=== PATIENT | male | born 1945 | race Two or more races ===

== ENCOUNTER 2018-06-29 21:28 | Inpatient (IN) | payer MEDICARE ==
[2018-06-29] MEDS ORDERED: SODIUM CHLORIDE 0.9% 1,000 ML IV STA (21:35)
[2018-06-29] MEDS ORDERED: DEXAMETHASONE SOD PHOSPHATE 10 MG/ML 1 ML VIAL IV STA (21:35)
[2018-06-29 21:53] LABS: Glucose,Whole Blood 125 mg/dL (75-99)
--- NOTE | 2018-06-29 22:32 | XR ---
EXAMINATION TYPE: XR chest 2V DATE OF EXAM: 06/29/2018 COMPARISON: NONE HISTORY: Weakness TECHNIQUE: Frontal and lateral views of the chest are obtained. FINDINGS: There is no heart failure nor confluent pneumonic infiltrate. Costophrenic angles are jarvis r. Heart size is normal. There is right shoulder prosthesis. There are chest leads. There is no sign of pleural effusion. IMPRESSION: No active cardiopulmonary disease. Normal heart.
--- NOTE | 2018-06-29 22:33 | ED ---
Altered Mental Status HPI - General Chief Complaint: Neuro Symptoms/Deficit Stated Complaint: Poss Stroke Time Seen by Provider: 06/29/18 21:35 Source: patient, EMS, RN notes reviewed, old records reviewed Mode of arrival: EMS Limitations: no limitations - History of Present Illness Initial Comments: This is a 72-year-old male the ER for evaluation of significant altered mental status. Unresponsiveness. EMS called the patient's office patient was last seen normal around 4 PM this afternoon. Patient unable to currently answer questions MD Complaint: altered mental status -: hour(s) (5) Severity: severe Consistency of Symptoms: constant Context: history of similar presentation, recent fever, other (Multiple sclerosis) Associated Symptoms: denies other symptoms - Related Data Home Medications Medication Instructions Recorded Confirmed Amantadine HCl [Symmetrel] 100 mg PO BID 06/29/18 06/29/18 Ascorbic Acid [Vitamin C] 1,000 mg PO DAILY 06/29/18 06/29/18 Aspirin 81 mg PO DAILY 06/29/18 06/29/18 Baclofen [Lioresal] 20 mg PO TID 06/29/18 06/29/18 Cholecalciferol [Vitamin D3] 3,000 unit PO DAILY 06/29/18 06/29/18 Citalopram Hydrobromide [CeleXA] 20 mg PO DAILY 06/29/18 06/29/18 Cranberry 1200mg 1,200 mg PO DAILY 06/29/18 06/29/18 Folic Acid 0.4 mg PO DAILY 06/29/18 06/29/18 Furosemide [Lasix] 40 mg PO BID 06/29/18 06/29/18 Montelukast [Singulair] 10 mg PO DAILY 06/29/18 06/29/18 Multivitamins, Thera [Multivitamin 1 tab PO DAILY 06/29/18 06/29/18 (formulary)] [place]-3 Fatty Acids/Fish Oil [Fish 1 cap PO DAILY 06/29/18 06/29/18 Oil 1,000 mg Softgel] Potassium Chloride ER [K-Dur 10] 10 meq PO DAILY 06/29/18 06/29/18 Simvastatin [Zocor] 20 mg PO DAILY 06/29/18 06/29/18 Vitamin E (Dl,Tocopheryl Acet) 400 unit PO DAILY 06/29/18 06/29/18 [Vitamin E] glyBURIDE 1.25 mg PO DAILY 06/29/18 06/29/18 Allergies Allergy/AdvReac Type Severity Reaction Status Date / Time adhesive tape Allergy Rash/Hives Verified 06/29/18 21:37 codeine Allergy Rash/Hives Verified 06/29/18 21:35 Review of Systems ROS Statement: Those systems with pertinent positive or pertinent negative responses have been documented in the HPI. ROS Other: All systems not noted in ROS Statement are negative. Past Medical History Past Medical History: Diabetes Mellitus, Hyperlipidemia, Musculoskeletal Disorder History of Any Multi-Drug Resistant Organisms: None Reported Additional Past Surgical History / Comment(s): right shoulder reverse repair, lithotrispy Past Psychological History: Depression Smoking Status: Former smoker Past Alcohol Use History: None Reported Past Drug Use History: None Reported General Exam - General Exam Comments Initial Comments: NIH is difficult to ascertain if patient cannot follow commands Limitations: no limitations General appearance: alert, in no apparent distress Head exam: Present: atraumatic, normocephalic, normal inspection Eye exam: Present: normal appearance, PERRL, EOMI. Absent: scleral icterus, conjunctival injection, periorbital swelling ENT exam: Present: normal exam, mucous membranes moist Neck exam: Present: normal inspection. Absent: tenderness, meningismus, lymphadenopathy Respiratory exam: Present: normal lung sounds bilaterally. Absent: respiratory distress, wheezes, rales, rhonchi, stridor Cardiovascular Exam: Present: regular rate, normal rhythm, normal heart sounds. Absent: systolic murmur, diastolic murmur, rubs, gallop, clicks GI/Abdominal exam: Present: soft, normal bowel sounds. Absent: distended, tenderness, guarding, rebound, rigid Extremities exam: Present: normal inspection, full ROM, normal capillary refill. Absent: tenderness, pedal edema, joint swelling, calf tenderness Back exam: Present: normal inspection Neurological exam: Present: alert, oriented X3, CN II-XII intact Psychiatric exam: Present: normal affect, normal mood Skin exam: Present: warm, dry, intact, normal color. Absent: rash Course Vital Signs 06/29/18 06/29/18 06/29/18 21:30 21:36 21:40 Temperature 97.8 F Pulse Rate 76 72 80 Respiratory 18 18 15 Rate Blood Pressure 140/71 140/71 O2 Sat by Pulse 95 95 98 Oximetry 06/29/18 06/29/18 06/29/18 21:50 22:00 22:10 Temperature Pulse Rate 73 71 69 Respiratory 12 9 L 15 Rate Blood Pressure 140/71 140/71 136/64 O2 Sat by Pulse 99 95 Oximetry 06/29/18 06/29/18 06/29/18 22:30 22:40 22:50 Temperature Pulse Rate 66 71 64 Respiratory 15 15 Rate Blood Pressure 161/68 173/76 O2 Sat by Pulse 89 L 99 Oximetry 06/29/18 23:34 Temperature Pulse Rate 70 Respiratory 18 Rate Blood Pressure 157/68 O2 Sat by Pulse 97 Oximetry - Reevaluation(s) Reevaluation #1: 06/29/18 23:56 Medical record is reviewed Family states patient is a no code Reevaluation #2: 06/29/18 23:56 Patient is mildly currently improving Medical Decision Making - Medical Decision Making 70 female the ER for altered mental status and responsiveness positive UTI history of old stroke possible new stroke currently. Patient also has possible MS exacerbation. Recent admission for prolonged hospitalization secondary to pneumonia just recently discharged and stopped antibiotics - Lab Data Result diagrams: 06/29/18 21:39 06/29/18 21:39 Lab Results 06/29/18 06/29/18 06/29/18 Range/Units 21:39 21:39 21:39 WBC 4.0 (3.8-10.6) k/uL RBC 3.18 L (4.30-5.90) m/uL Hgb 10.1 L (13.0-17.5) gm/dL Hct 31.9 L (39.0-53.0) % MCV 100.1 H (80.0-100.0) fL MCH 31.7 (25.0-35.0) pg MCHC 31.7 (31.0-37.0) g/dL RDW 17.4 H (11.5-15.5) % Plt Count 179 (150-450) k/uL Neutrophils % (Manual) 50 % Lymphocytes % (Manual) 46 % Monocytes % (Manual) 4 % Neutrophils # (Manual) 2.00 (1.3-7.7) k/uL Lymphocytes # (Manual) 1.84 (1.0-4.8) k/uL Monocytes # (Manual) 0.16 (0-1.0) k/uL Nucleated RBCs 0 (0-0) /100 WBC Manual Slide Review Performed Reactive Lymphocytes Present Hypochromasia Slight Anisocytosis Slight Macrocytosis Slight PT (9.0-12.0) sec INR (<1.2) APTT (22.0-30.0) sec Sodium 146 H (137-145) mmol/L Potassium 3.0 L (3.5-5.1) mmol/L Chloride 105 (98-107) mmol/L Carbon Dioxide 34 H (22-30) mmol/L Anion Gap 7 mmol/L BUN 27 H (9-20) mg/dL Creatinine 1.29 H (0.66-1.25) mg/dL Est GFR (CKD-EPI)AfAm 64 (>60 ml/min/1.73 sqM) Est GFR (CKD-EPI)NonAf 55 (>60 ml/min/1.73 sqM) Glucose 127 H (74-99) mg/dL POC Glucose (mg/dL) (75-99) mg/dL POC Glu Device Sales Consultant ID Plasma Lactic Acid [place] (0.7-2.0) mmol/L Calcium 9.5 (8.4-10.2) mg/dL Phosphorus 3.3 (2.5-4.5) mg/dL Magnesium 2.1 (1.6-2.3) mg/dL Total Bilirubin 0.5 (0.2-1.3) mg/dL AST 19 (17-59) U/L ALT 23 (21-72) U/L Alkaline Phosphatase 68 (38-126) U/L Total Creatine Kinase 34 L (55-170) U/L CK-MB (CK-2) 0.8 (0.0-2.4) ng/mL CK-MB (CK-2) Rel Index 2.4 Troponin I <0.012 (0.000-0.034) ng/mL Total Protein 7.7 (6.3-8.2) g/dL Albumin 3.7 (3.5-5.0) g/dL Urine Color Urine Appearance (Clear) Urine pH (5.0-8.0) Ur Specific [place] (1.001-1.035) Urine Protein (Negative) Urine Glucose (UA) (Negative) Urine Ketones (Negative) Urine Blood (Negative) Urine Nitrite (Negative) Urine Bilirubin (Negative) Urine Urobilinogen (<2.0) mg/dL Ur Leukocyte Esterase (Negative) Urine RBC (0-5) /hpf Urine WBC (0-5) /hpf Urine WBC Clumps (None) /hpf Ur Squamous Epith Cells (0-4) /hpf Urine Bacteria (None) /hpf Hyaline Casts (0-2) /lpf Urine Mucus (None) /hpf Urine Yeast (Budding) (None) /hpf 06/29/18 06/29/18 06/29/18 Range/Units 21:39 21:39 21:39 WBC (3.8-10.6) k/uL RBC (4.30-5.90) m/uL Hgb (13.0-17.5) gm/dL Hct (39.0-53.0) % MCV (80.0-100.0) fL MCH (25.0-35.0) pg MCHC (31.0-37.0) g/dL RDW (11.5-15.5) % Plt Count (150-450) k/uL Neutrophils % (Manual) % Lymphocytes % (Manual) % Monocytes % (Manual) % Neutrophils # (Manual) (1.3-7.7) k/uL Lymphocytes # (Manual) (1.0-4.8) k/uL Monocytes # (Manual) (0-1.0) k/uL Nucleated RBCs (0-0) /100 WBC Manual Slide Review Reactive Lymphocytes Hypochromasia Anisocytosis Macrocytosis PT 11.5 (9.0-12.0) sec INR 1.2 H (<1.2) APTT 20.6 L (22.0-30.0) sec Sodium (137-145) mmol/L Potassium (3.5-5.1) mmol/L Chloride (98-107) mmol/L Carbon Dioxide (22-30) mmol/L Anion Gap mmol/L BUN (9-20) mg/dL Creatinine (0.66-1.25) mg/dL Est GFR (CKD-EPI)AfAm (>60 ml/min/1.73 sqM) Est GFR (CKD-EPI)NonAf (>60 ml/min/1.73 sqM) Glucose (74-99) mg/dL POC Glucose (mg/dL) (75-99) mg/dL POC Glu Device Sales Consultant ID Plasma Lactic Acid Irving 1.1 (0.7-2.0) mmol/L Calcium (8.4-10.2) mg/dL Phosphorus (2.5-4.5) mg/dL Magnesium (1.6-2.3) mg/dL Total Bilirubin (0.2-1.3) mg/dL AST (17-59) U/L ALT (21-72) U/L Alkaline Phosphatase (38-126) U/L Total Creatine Kinase (55-170) U/L CK-MB (CK-2) (0.0-2.4) ng/mL CK-MB (CK-2) Rel Index Troponin I (0.000-0.034) ng/mL Total Protein (6.3-8.2) g/dL Albumin (3.5-5.0) g/dL Urine Color Yellow Urine Appearance Turbid (Clear) Urine pH 6.0 (5.0-8.0) Ur Specific [place] 1.007 (1.001-1.035) Urine Protein 1+ H (Negative) Urine Glucose (UA) Negative (Negative) Urine Ketones Negative (Negative) Urine Blood Trace H (Negative) Urine Nitrite Negative (Negative) Urine Bilirubin Negative (Negative) Urine Urobilinogen <2.0 (<2.0) mg/dL Ur Leukocyte Esterase Large H (Negative) Urine RBC 82 H (0-5) /hpf Urine WBC >182 H (0-5) /hpf Urine WBC Clumps Occasional H (None) /hpf Ur Squamous Epith Cells 2 (0-4) /hpf Urine Bacteria Rare H (None) /hpf Hyaline Casts 35 H (0-2) /lpf Urine Mucus Moderate H (None) /hpf Urine Yeast (Budding) Many H (None) /hpf 06/29/18 Range/Units 21:51 WBC (3.8-10.6) k/uL RBC (4.30-5.90) m/uL Hgb (13.0-17.5) gm/dL Hct (39.0-53.0) % MCV (80.0-100.0) fL MCH (25.0-35.0) pg MCHC (31.0-37.0) g/dL RDW (11.5-15.5) % Plt Count (150-450) k/uL Neutrophils % (Manual) % Lymphocytes % (Manual) % Monocytes % (Manual) % Neutrophils # (Manual) (1.3-7.7) k/uL Lymphocytes # (Manual) (1.0-4.8) k/uL Monocytes # (Manual) (0-1.0) k/uL Nucleated RBCs (0-0) /100 WBC Manual Slide Review Reactive Lymphocytes Hypochromasia Anisocytosis Macrocytosis PT (9.0-12.0) sec INR (<1.2) APTT (22.0-30.0) sec Sodium (137-145) mmol/L Potassium (3.5-5.1) mmol/L Chloride (98-107) mmol/L Carbon Dioxide (22-30) mmol/L Anion Gap mmol/L BUN (9-20) mg/dL Creatinine (0.66-1.25) mg/dL Est GFR (CKD-EPI)AfAm (>60 ml/min/1.73 sqM) Est GFR (CKD-EPI)NonAf (>60 ml/min/1.73 sqM) Glucose (74-99) mg/dL POC Glucose (mg/dL) 125 H (75-99) mg/dL POC Glu Device Sales Consultant ID Debora Hickey Plasma Lactic Acid [place] (0.7-2.0) mmol/L Calcium (8.4-10.2) mg/dL Phosphorus (2.5-4.5) mg/dL Magnesium (1.6-2.3) mg/dL Total Bilirubin (0.2-1.3) mg/dL AST (17-59) U/L ALT (21-72) U/L Alkaline Phosphatase (38-126) U/L Total Creatine Kinase (55-170) U/L CK-MB (CK-2) (0.0-2.4) ng/mL CK-MB (CK-2) Rel Index Troponin I (0.000-0.034) ng/mL Total Protein (6.3-8.2) g/dL Albumin (3.5-5.0) g/dL Urine Color Urine Appearance (Clear) Urine pH (5.0-8.0) Ur Specific [place] (1.001-1.035) Urine Protein (Negative) Urine Glucose (UA) (Negative) Urine Ketones (Negative) Urine Blood (Negative) Urine Nitrite (Negative) Urine Bilirubin (Negative) Urine Urobilinogen (<2.0) mg/dL Ur Leukocyte Esterase (Negative) Urine RBC (0-5) /hpf Urine WBC (0-5) /hpf Urine WBC Clumps (None) /hpf Ur Squamous Epith Cells (0-4) /hpf Urine Bacteria (None) /hpf Hyaline Casts (0-2) /lpf Urine Mucus (None) /hpf Urine Yeast (Budding) (None) /hpf - EKG Data -: EKG Interpreted by Me (EKG shows normal sinus rhythm rate of 71, IA 150, QRS 96, QTc 380) - Radiology Data Radiology results: report reviewed (CT brain shows old CVA, chest x-ray negative ), image reviewed Disposition Clinical Impression: Transient cerebral ischemia, Altered mental status, UTI (urinary tract infection), Hypokalemia Disposition: ADMITTED IP TO THIS HOSP Condition: Fair Is patient prescribed a controlled substance at d/c from ED?: No Referrals: Ramon Suero DO [Primary Care Provider] - 1-2 days
--- NOTE | 2018-06-29 22:34 | CT ---
EXAMINATION TYPE: CT brain wo con DATE OF EXAM: 06/29/2018 COMPARISON: None HISTORY: Weakness CT DLP: 1228.4 mGycm Automated exposure control for dose reduction was used. FINDINGS: There is diffuse cerebral cortical atrophy. There is no mass effect nor midline shift. There is no si gn of intracranial hemorrhage. There is old large right parietal cortical infarct. This measures 7 x 4.5 cm. The calvarium is intact. IMPRESSION: OLD RIGHT PARIETAL CORTICAL INFARCT. NO ACUTE INTRACRANIAL ABNORMALITY. CEREBRAL ATROPHY.
[2018-06-29 22:37] LABS: Albumin 3.7 g/dL (3.5-5.0); Calcium 9.5 mg/dL (8.4-10.2); Magnesium 2.1 mg/dL (1.6-2.3); Phosphorus 3.3 mg/dL (2.5-4.5); Total Bilirubin 0.5 mg/dL (0.2-1.3); Total Protein 7.7 g/dL (6.3-8.2)
[2018-06-29 22:38] LABS: Anisocytosis Slight; HCT 31.9 % (39.0-53.0); HGB 10.1 gm/dL (13.0-17.5); Hypochromasia Slight; MCH 31.7 pg (25.0-35.0); MCHC 31.7 g/dL (31.0-37.0); MCV 100.1 fL (80.0-100.0); Macrocytosis Slight; Mean Platelet Volume 10.3; Platelet Count 179 k/uL (150-450); RBC 3.18 m/uL (4.30-5.90); RDW 17.4 % (11.5-15.5)
[2018-06-29 22:40] LABS: Creatine Kinase 34 U/L (55-170)
[2018-06-29 22:51] LABS: INR 1.2 (<1.2); Prothrombin Time 11.5 sec (9.0-12.0)
[2018-06-29 22:52] LABS: Creatine Kinase MB 0.8 ng/mL (0.0-2.4); Troponin I <0.012 ng/mL (0.000-0.034)
[2018-06-29 22:54] LABS: Appearance,Urine Turbid (Clear); Bacteria,Urine Rare /hpf; Bilirubin,Urine Negative (Negative); Blood,Urine Trace (Negative); Budding Yeast,Urine Many /hpf; Color,Urine Yellow; Glucose,Urine (UA) Negative (Negative); Hyaline Casts,Urine 35 /lpf (0-2); Ketones,Urine Negative (Negative); Leukocyte Esterase,Urine Large (Negative); Mucus,Urine Moderate /hpf; Nitrite,Urine Negative (Negative); Protein,Urine 1+ (Negative); RBC,Urine 82 /hpf (0-5); Specific Gravity,Urine 1.007 (1.001-1.035); Squamous Epithelial Cell,Urine 2 /hpf (0-4); Urobilinogen,Urine <2.0 mg/dL (<2.0); WBC,Urine >182 /hpf (0-5)
[2018-06-29 22:56] LABS: Lymphocytes # (M) 1.84 k/uL (1.0-4.8); Monocytes # (M) 0.16 k/uL (0-1.0); Neutrophils % (M) 50 %; Nucleated Red Blood Cells 0 /100 WBC (0-0); Reactive Lymphocytes Present; Total Cells Counted 100
[2018-06-29] MEDS ORDERED: cefTRIAXone 2,000 MG in SODIUM CHLORIDE 0.9% 100 ML IVPB STA (23:37)
[2018-06-29] MEDS ORDERED: ASPIRIN 325 MG TAB PO STA (23:45)
[2018-06-29] MEDS: POTASSIUM CHLORIDE 20 MEQ in WATER FOR INJECTION 1 100ML.BAG IVPB SCH (23:45)
[2018-06-29 23:52] LABS: Partial Thromboplastin Time 20.6 sec (22.0-30.0)
[2018-06-30] MEDS: POTASSIUM CHLORIDE 20 MEQ in WATER FOR INJECTION 1 100ML.BAG IVPB SCH (01:35)
[2018-06-30] MEDS ORDERED: ASPIRIN 300 MG SUPP RECTAL STA (01:51)
[2018-06-30 03:53] LABS: Cholesterol 141 mg/dL (<200); HDL Cholesterol 49 mg/dL (40-60); LDL Cholesterol,Calculated 77 mg/dL (0-99); Triglycerides 76 mg/dL (<150)
[2018-06-30] MEDS ORDERED: METOPROLOL TARTRATE 5 MG/5 ML VIAL IVP STA (04:08)
[2018-06-30] MEDS ORDERED: ONDANSETRON 4 MG/2 ML VIAL IVP STA (04:09)
[2018-06-30 04:14] LABS: Glucose,Whole Blood 219 mg/dL (75-99)
[2018-06-30] MEDS ORDERED: DILTIAZEM 5 MG/ML 5 ML VIAL IVP ONE (04:15)
[2018-06-30] MEDS ORDERED: DILTIAZEM DRIP BOLUS FROM BAG 1 MG SOLN IV ONE (04:21)
[2018-06-30] MEDS ORDERED: METOPROLOL TARTRATE 5 MG/5 ML VIAL IVP PRN (04:21)
[2018-06-30] MEDS ORDERED: SODIUM CHLORIDE 0.9% 1,000 ML IV ONE (04:23)
--- NOTE | 2018-06-30 05:05 | XR ---
EXAM: XR Chest, 1 View CLINICAL HISTORY: ITS.REASON XR Reason: sob TECHNIQUE: Frontal view of the chest. COMPARISON: 06/29/18 chest x-ray IMPRESSION: Unchanged cardiomediastinal silhouette. No consolidation or pleural effusion.
[2018-06-30] MEDS: DILTIAZEM 50 MG in SODIUM CHLORIDE 0.9% 40 ML IV SCH ×3 (06:24→22:46)
[2018-06-30] MEDS: SODIUM CHLORIDE 0.9% 1,000 ML IV SCH ×3 (06:25→21:44)
[2018-06-30] MEDS: ONDANSETRON 4 MG/2 ML VIAL IVP SCH ×4 (08:59→23:24)
--- NOTE | 2018-06-30 13:14 | HP ---
HISTORY AND PHYSICAL CHIEF COMPLAINT: A 72-year-old white male came to the emergency room with altered mental status, unresponsiveness. He is found to have urosepsis, possibly a stroke. He is unable to answer questions. He is arousable and moans, but does not talk. severity. He has a history of multiple sclerosis and possibly a stroke in the past. HOME MEDICINES: 1. Amantadine. 2. Aspirin. 3. Lioresal. 4. All kinds of vitamins. 5. Celexa 20 mg daily. 6. Lasix 40 mg b.i.d. 7. Singulair 10 mg daily. 8. Multivitamin. 9. Potassium chloride 10 mEq daily. 10.Zocor 20 daily. 11.Glyburide 1.25 daily. ALLERGIES: CODEINE. REVIEW OF SYSTEMS: Fourteen-point review of systems is unobtainable as patient is obtunded. He obviously has generalized weakness. Otherwise, 14-point review of systems as mentioned above otherwise negative. PHYSICAL EXAMINATION: Temp 97.8, pulse is 70s to 80s, blood pressure is 140s over 70s, O2 of 95% to 98%. CARDIOVASCULAR: S1, S2. LUNGS: Transmitted upper sounds. HEMATOLOGY: Negative Homans. NEUROLOGICALLY: He has spastic extremities, contractions in his extremities. HEMATOLOGY: He has 2+ pedal edema. NEUROLOGIC: Alert, oriented x0. PSYCH: He just moans, does not talk. He opens his eyes and moans to questions and moves all 4 extremities. GI: Soft. HEMATOLOGY: As mentioned, negative Homans. Sodium was 146, potassium 3.0, BUN is 27, creatinine 1.29, hemoglobin is 10.1. ASSESSMENT: 1. Urosepsis. 2. Multiple sclerosis exacerbation, possibly a new stroke. 3. Possible rule out pneumonia. 4. History of diabetes mellitus. 5. Possibly some diastolic congestive heart failure as he is on diuretics at home. Multiple consults are intact. Echo, carotid, urine culture. Broad-spectrum antibiotics. Please see further orders in the chart. MMODL / IJN: [id number] /
[2018-06-30] MEDS ORDERED: BACLOFEN 10 MG TAB PO SCH (16:00)
--- NOTE | 2018-06-30 16:10 | US ---
EXAMINATION TYPE: US carotid duplex BILAT DATE OF EXAM: 06/30/2018 COMPARISON: NONE CLINICAL HISTORY: cva. Patient has h/o stroke and known bilateral endarectomy and occlusion of ICA's per family member, patient is effected on his right side and has rigid neck and right arm EXAM MEASUREMENTS: RIGHT: Peak Systolic Velocity (PSV) cm/sec unable to assess right CCA/ICA due to patient inability to move his head LEFT: Peak Systolic Velocity (PSV) cm/sec ----- Left CCA: 55.9 ----- Left ICA: Not detected ----- Left ECA: 109.6 ICA/CCA ratio: N/A LEFT: End Diastole cm/sec ----- Left CCA: 9.7 ----- Left ICA: Not detected ----- Left ECA: 15.0 VERTEBRALS (direction of flow): Right Vertebral: unable to assess due to reasons stated above Left Vertebral: Antegrade Rhythm: Normal Extensive plaque seen on the left, total occlusion of left ICA IMPRESSION: 1. Occlusion of left internal carotid artery. 2. Extensive plaquing present on the left. 3. Nonevaluation of the right carotid system. Criteria for Assigning % of Stenosis / Diameter reduction (Estimation based on the indirect measurements of the internal carotid artery velocities (ICA PSV). 1. Normal (no stenosis)=ICA PSV < 125 cm/s: ratio < 2.0: ICA EDV<40 cm/s. 2. Less than 50% stenosis=ICA PSV < 125 cm/s: ratio < 2.0: ICA EDV<40 cm/s. 3. 50 to 69% stenosis=ICA PSV of 125 to 230 cm/s: ration 2.0 ? 4.0: ICA EDV 40-100 cm/s. 4. Greater than 70% stenosis to near occlusion= ICA PSV > 230 cm/s: ratio > 4.0: ICA EDV > 100 cm/s. 5. Near occlusion= ICA PSV velocities may be low or undetectable: variable ratio and ICA EDV. 6. Total occlusion=unable to detect flow. A [place] level critical message alert has been initiated for Thomas Crenshaw MD via the [employer] Critical Results System on 06/30/2018 4:07 PM. This message alert has been sent to Thomas Crenshaw MD via the preferences provided by the clinician for the receipt of Radiology Critical Findings. Juan M e ID [id number].
[2018-06-30] MEDS: POTASSIUM CHLORIDE ER 10 MEQ TAB.ER.PRT PO SCH (17:14)
[2018-06-30 17:16] LABS: Glucose,Whole Blood 142 mg/dL (75-99)
--- NOTE | 2018-06-30 18:31 | ECHOF ---
Referral Reason:cva MEASUREMENTS -------- HEIGHT: 454.7 cm WEIGHT: 79.8 kg BP: IVSd: 1.2 cm (0.6 - 1.1) LVIDd: 3.7 cm (3.9 - 5.3) LVPWd: 1.3 cm (0.6 - 1.1) IVSs: 1.4 cm LVIDs: 3.0 cm LVPWs: 1.2 cm MV EXCURSION: 18.742 mm (> 18.000) MV EF SLOPE: 83 mm/s (70 - 150) EPSS: 1.9 cm MV E Armand: 0.55 m/s MV DecT: 211 ms MV A Armand: 0.95 m/s MV E/A Ratio: 0.58 RAP: 5.00 mmHg RVSP: 12.43 mmHg FINDINGS -------- Sinus rhythm. This was a technically adequate study. Pt. has a pectus chest. The left ventricular size is normal. There is mild concentric left ventricular hypertrophy. Overa ll left ventricular systolic function is low-normal with, an EF between 50 - 55 %. The right ventricle is normal in size. The left atrial size is normal. The right atrial size is normal. The aortic valve is trileaflet, and appears structurally normal. No aortic stenosis or regurgitation. Mild mitral annular calcification present. Mild mitral regurgitation is present. Mild tricuspid regurgitation present. There is no evidence of pulmonary hypertension. The right v entricular systolic pressure, as measured by Doppler, is 12.43mmHg. There is no pulmonic regurgitation present. The aortic root size is normal. There is no pericardial effusion. CONCLUSIONS -------- 1. The left ventricular size is normal. 2. There is mild concentric left ventricular hypertrophy. 3. Overall left ventricular systolic function is low-normal with, an EF between 50 - 55 %. 4. The right ventricle is normal in size. 5. The left atrial size is normal. 6. The right atrial size is normal. 7. The aortic valve is trileaflet, and appears structurally normal. No aortic stenosis or regurgitati on. 8. Mild mitral annular calcification present. 9. Mild mitral regurgitation is present. 10. Mild tricuspid regurgitation present. 11. There is no evidence of pulmonary hypertension. 12. The right ventricular systolic pressure, as measured by Doppler, is 12.43mmHg. 13. There is no pulmonic regurgitation present. 14. The aortic root size is normal. 15. There is no pericardial effusion. NURSE WOUND: Mariiln Leon RDCS
[2018-06-30] MEDS: FUROSEMIDE 40 MG TAB PO SCH (20:03)
[2018-06-30] MEDS: AMANTADINE HCL 100 MG CAP PO SCH (20:08)
[2018-06-30] MEDS: BACLOFEN 10 MG TAB PO SCH (20:09)
[2018-06-30 20:41] LABS: Glucose,Whole Blood 141 mg/dL (75-99)
[2018-06-30] MEDS: HEPARIN SODIUM,PORCINE 5,000 UNIT/ML 1 ML VIAL SQ SCH (20:43)
--- NOTE | 2018-06-30 20:47 | CONS ---
CONSULTATION Garcia Augustin is a 72-year-old male who came into the ER at [facility] on 06/29/2018. At that time, he had come in because of a decrease in his mentation. He apparently had been able to the eat, especially with Thick-it and previously had aspiration pneumonia. He was admitted to a rehab unit and was sent home about 4 or 5 days ago. He became progressively less responsive. He has a known history of CVA in the past because of a previous carotid surgery with weakness on the right. He also has a history of multiple sclerosis and had been discharged from the rehab facility with palliative care. He does not give me any history at this time, but acknowledges verbal stimuli. He does not seem to be in any pain. PAST MEDICAL HISTORY: Positive for bilateral carotid stenosis, bilateral carotid surgery with subsequent complete occlusion of the left side with a stroke at the time of his surgery. History of diabetes mellitus, history of multiple sclerosis. No clear history of asthma or COPD. FAMILY HISTORY: Unavailable. SOCIAL HISTORY: Patient is a former smoker. Does not drink alcohol excessively and has been in and out of a health care facility since middle of April of 2018, except for 4 days prior to coming into the hospital here. PHYSICAL EXAMINATION: His blood pressure is 180/74, respiratory rate of 15, pulse rate of 75, temperature 97, O2 saturation on 2 L by nasal cannula is 98%. HEENT reveals pupils that are equal. He has scars of previous carotid surgery. Cardiovascular system reveals an S1, S2. No S3, no S4. He is in sinus rhythm right now. Abdomen is soft. There is a Lewis in place. There is no pedal edema. Neurologically patient is rigid, does not move his extremities. PT/INR is 1.2. White count of 4, hemoglobin of 10.1, glucose is 127, sodium 146, potassium 3, chloride 105, bicarb 38. UA showed large leukocyte esterase with WBC greater than 182 with 1+ protein. Brain MRI is pending. Chest x-ray shows no consolidation or any effusions. IMPRESSION: At this time: 1. Decreased mentation secondary to metabolic encephalopathy is likely. 2. Urinary tract infection with sepsis. 3. Doubt aspiration pneumonia, but cannot rule that out at this time. microbiological cultures are in progress. PLAN: At this point in time from a pulmonary standpoint would keep the patient on antibiotics. Have ID further evaluate the patient. Would hold off on any oral feeding until he is more awake and able to participate. Depending on how he does we should make further changes to his care. I did public relations counselor his regarding his condition and guarded prognosis. Depending on how he does we should make further changes to his care. ESTEFANY / ORALIA: [id number] /
[2018-06-30] MEDS: FAMOTIDINE 20 MG/2 ML VIAL IV SCH (21:52)
[2018-06-30] MEDS ORDERED: VANCOMYCIN IV PER PHARMACY 1 EACH MISC MISCELLANE PRN (22:24)
[2018-06-30] MEDS ORDERED: ASPIRIN 325 MG TAB PO SCH (23:46)
[2018-07-01] MEDS: FUROSEMIDE 40 MG TAB PO SCH ×2 (04:23→17:54)
[2018-07-01] MEDS: SODIUM CHLORIDE 0.9% 1,000 ML IV SCH ×2 (06:01→17:59)
[2018-07-01] MEDS: ONDANSETRON 4 MG/2 ML VIAL IVP SCH ×4 (06:01→23:46)
[2018-07-01 06:03] LABS: Glucose,Whole Blood 120 mg/dL (75-99)
[2018-07-01 07:50] LABS: Albumin 3.2 g/dL (3.5-5.0); Calcium 8.6 mg/dL (8.4-10.2); Potassium 3.4 mmol/L (3.5-5.1); Total Bilirubin 0.3 mg/dL (0.2-1.3); Total Protein 6.8 g/dL (6.3-8.2)
[2018-07-01 07:55] LABS: Anisocytosis Slight; HCT 31.8 % (39.0-53.0); HGB 9.9 gm/dL (13.0-17.5); Hypochromasia Moderate; MCH 31.7 pg (25.0-35.0); MCHC 31.3 g/dL (31.0-37.0); MCV 101.4 fL (80.0-100.0); Macrocytosis Moderate; Mean Platelet Volume 10.2; Platelet Count 143 k/uL (150-450); RBC 3.13 m/uL (4.30-5.90); RDW 16.9 % (11.5-15.5); WBC 3.5 k/uL (3.8-10.6)
--- NOTE | 2018-07-01 08:21 | CONS ---
CONSULTATION DATE OF CONSULTATION: 06/30/2018 CHIEF COMPLAINT: Altered mental status. HISTORY OF PRESENT ILLNESS: The patient is a 72-year-old male, who is being evaluated by the Neurology Service today on 06/30/2018 per the request of Dr. Thomas Crenshaw for altered mental status. According to the chart, the patient has history of multiple sclerosis and ischemic stroke and has a baseline history of left hemiparesis and significant gait dysfunction due to both of these conditions. He was recently treated for a urinary tract infection as an inpatient and then transferred to inpatient rehab according to the nursing staff. Yesterday, he was found to be having altered consciousness and in a way not responding to anyone like he usually does. According to the nursing staff, the patient is usually able to answer some questions. And he has been not doing so since yesterday. The patient is unable to communicate and no family members are available at the time of my evaluation. A CT scan of the brain was done, which showed the old ischemic stroke involving the right parietal lobe. There was also generalized atrophy seen. A carotid Doppler was done which showed left internal carotid artery occlusion. The test had difficulty visualizing the right side. An MRI of the brain has been ordered. His CBC showed anemia with a hemoglobin of 10.1 and hematocrit of 31%. His fasting lipid panel, and cardiac enzymes were normal. His BUN and creatinine were slightly elevated at 27 and 1.29. At the time of my evaluation, the patient is lying in his bed and appears to be having significant spasms on the right side of his body. From his history of multiple sclerosis, the patient appears to have a history of spasticity as he is currently on baclofen 20 mg t.i.d. prior to this admission. He is not on any disease modifying therapy for his multiple sclerosis. PAST MEDICAL HISTORY: Multiple sclerosis, stroke, dyslipidemia, diabetes, arthritis, depression. SOCIAL HISTORY: The patient is a former smoker. There is no history of any alcohol or drug use. FAMILY HISTORY: Noncontributory. HOME MEDICATIONS: Reviewed in the chart. ALLERGIES: ADHESIVE TAPE and CODEINE. REVIEW OF SYSTEM: Unable to obtain, due to the patient being nonverbal at this time. PHYSICAL EXAM: Vital signs show a temperature of 97.0, pulse 75, respiration 15, blood pressure 180/74. GENERAL APPEARANCE: The patient is a well-developed male who appears to be in no obvious distress. HEENT: Right facial spasms are noticed. Pupils are reactive to light. The head is atraumatic. His neck examination shows some torticollis. No masses are felt. CARDIOVASCULAR: Regular rate and rhythm. ABDOMEN: Nontender, nondistended. EXTREMITIES: Showed no edema. There was a evidence of contractures on the left side and spasticity on the right side NEUROLOGICAL EXAM: The patient is awake but does not respond to any verbal stimuli, although he does make eye contact. If speech and language could not be assessed as the patient is not answering any questions. He does not follow any commands. The patient does not respond to anything when sensory testing was being done. His tone is quite spastic on the right side. Contractures are present on the left side. Cranial nerve testing did show some right hemifacial spasms. IMPRESSION: 1. Altered mental status. 2. Multiple sclerosis. 3. Right-sided spasticity. 4. History of ischemic stroke with left hemiparesis. 5. Acute urinary tract infection. RECOMMENDATION: The patient continues to be unresponsive to any verbal commands at this time. It is unclear what his exact baseline is as there is no family member at the time of my evaluation, at bedside. Per the report, it appears that right-sided spasticity is newer, although I do see him on baclofen 20 mg 3 times daily at home. This dose should be increased to at least 4 times daily given the severity of his spasticity. An MRI of the brain has been ordered and I will make sure that will be done with and without contrast. I will consider starting him on IV Solu-Medrol depending on the results of his MRI. An EEG has been ordered. Speech Therapy has been consulted regarding the dysphagia. As for his acute urinary tract infection, continue IV antibiotics. The patient's spasticity and contractures appeared to be quite significant at this time and the patient should be considered for intrathecal baclofen therapy. I will continue to follow with you. Further recommendations to follow. Thank you for allowing me to participate in the care of your patient. If you have any questions, please feel free to contact me. ESTEFANY / ORALIA: [id number] /
[2018-07-01 08:29] LABS: Basophils # (M) 0.04 k/uL (0-0.2); Lymphocytes # (M) 1.37 k/uL (1.0-4.8); Monocytes # (M) 0.56 k/uL (0-1.0); Neutrophils # (M) 1.54 k/uL (1.3-7.7); Neutrophils % (M) 44 %; Nucleated Red Blood Cells 0 /100 WBC (0-0); Total Cells Counted 100
[2018-07-01 08:30] LABS: Poikilocytosis (M) Present
[2018-07-01] MEDS ORDERED: NON-FORMULARY DRUG (Omega-3 Fatty Acids/Fish Oil [Fish Oil 1,000 Mg Softgel] 1 CAP) PO SCH (09:00)
[2018-07-01 09:59] LABS: Albumin 3.3 g/dL (3.5-5.0); Calcium 8.7 mg/dL (8.4-10.2); Magnesium 1.9 mg/dL (1.6-2.3); Phosphorus 2.7 mg/dL (2.5-4.5); Total Bilirubin 0.4 mg/dL (0.2-1.3)
[2018-07-01] MEDS: HEPARIN SODIUM,PORCINE 5,000 UNIT/ML 1 ML VIAL SQ SCH ×2 (09:59→21:02)
[2018-07-01] MEDS: FAMOTIDINE 20 MG/2 ML VIAL IV SCH ×2 (09:59→21:02)
[2018-07-01] MEDS: BACLOFEN 10 MG TAB PO SCH ×4 (10:00→20:59)
[2018-07-01] MEDS: ATORVASTATIN 10 MG TAB PO SCH (10:00)
[2018-07-01] MEDS: ASPIRIN 81 MG PO SCH (10:00)
[2018-07-01] MEDS: AMANTADINE HCL 100 MG CAP PO SCH ×2 (10:00→20:58)
[2018-07-01] MEDS: CITALOPRAM HYDROBROMIDE 20 MG TAB PO SCH (10:00)
[2018-07-01] MEDS: POTASSIUM CHLORIDE ER 10 MEQ TAB.ER.PRT PO SCH (10:01)
[2018-07-01] MEDS: FOLIC ACID 1 MG TAB PO SCH (10:01)
[2018-07-01] MEDS: MONTELUKAST 10 MG TAB PO SCH (10:01)
[2018-07-01 10:08] LABS: Anisocytosis Slight; HCT 31.7 % (39.0-53.0); Hypochromasia Moderate; MCH 32.3 pg (25.0-35.0); MCHC 31.7 g/dL (31.0-37.0); MCV 101.8 fL (80.0-100.0); Macrocytosis Moderate; Platelet Count 150 k/uL (150-450); RBC 3.11 m/uL (4.30-5.90); RDW 17.2 % (11.5-15.5); WBC 3.8 k/uL (3.8-10.6)
[2018-07-01 10:48] LABS: Troponin I 0.042 ng/mL (0.000-0.034)
--- NOTE | 2018-07-01 11:03 | CONS ---
CONSULTATION DATE OF SERVICE: 06/30/2018 REASON FOR CONSULTATION: A UTI and sepsis. HISTORY OF PRESENT ILLNESS: The patient is a 72-year-old male who apparently recently was admitted at [facility]. The patient has been diagnosed with right knee septic arthritis. The patient has been on 2 different IV antibiotic therapy that the patient has completed recently and the PICC line was subsequently discontinued as per the information provided by family member at the bedside. The patient has been brought to the [facility] ER last night for evaluation of a mental status changes and decreased his level of responsiveness. This started on 4:00 pm the day of presentation to hospital concern for possible stroke. Subsequently the patient was evaluated by the ER physician the patient in has been afebrile. Highest temperature has been 99.2. The patient white count was normal; however, his UA was positive with large status is more than 1-2 WBC. This face has been obtained from a Lewis catheter that apparently was changed on June 12 last most of the information has been provided by the family members present at bedside as the patient cannot report any history. Subsequently the patient blood culture was drawn in the hospital is showing gram-positive cocci, that prompted this Infectious Disease consultation. Most of the information has been obtained from prior review of the chart and from the family as the patient himself cannot provide any history. REVIEW OF SYSTEMS: Could not be reliably obtained. The positive points have been mentioned in HPI. PAST MEDICAL HISTORY: Significant for a right knee septic arthritis, diabetes mellitus, hypertension, and depression. PAST SURGICAL HISTORY: Lithotripsy, hernia repair. SOCIAL HISTORY: Remote history of smoking, no drinking or drug use. FAMILY HISTORY: No pertinent findings noticed. ALLERGIES: To CODEINE. MEDICATIONS: Medications include the patient is currently on aspirin, Lipitor, baclofen, Rocephin, Pepcid, folic acid, Lasix, Glucotrol, Lopressor, vancomycin pharmacy to dose, Zofran. PHYSICAL EXAMINATION: Blood pressure is 158/65 with a pulse of 80, temperature 98.3, he is 96% on 2 L nasal cannula. General description is an elderly male, lying in bed in no distress. No tachypnea or accessory muscle for respiration use. HEENT: Shows pallor, no scleral icterus. Oral mucous membranes dry. No pharyngeal erythema or thrush. NECK: Trachea central, no thyromegaly. LUNGS: Unlabored breathing, clear to auscultation anteriorly. No wheeze or crackle. HEART: S1, S2. Regular rate and rhythm. ABDOMEN: Soft, no tenderness. No guarding or rigidity. EXTREMITIES: No edema of the feet. SKIN EXAMINATION: No rash or mass palpable. Patient currently has no open sores. The right knee shows no swelling, no redness or any open wound. NEUROLOGICAL: Patient is awake; however, orientation could not be determined. LABS: Hemoglobin is 10.1, white count of 4.0 with a BUN of 27, creatinine is 1.29. UA has been positive. DIAGNOSTIC IMPRESSION AND PLAN: 1. Patient admitted to the hospital with mental status changes likely multifactorial in this patient who also has a significantly positive UA, underlying urinary tract infection from enteric gram-negative pathogen not entirely excluded. 2. Patient with gram-positive bacteremia in a patient who recently did have a history of right knee septic arthritis, though the right knee currently with no significant swelling or redness was noticed or any open wound that could be the likely source as the patient currently no other clinical focus of this gram-positive bacteremia and no evidence of any cellulitis. PLAN: 1. Change his Lewis catheter, obtain urine culture from new Lewis. 2. Blood cultures repeated, document clearance of bacteremia. 3. Vancomycin pharmacy to dose, target trough of 15 while watching his kidney function closely. 4. Rocephin 1 g daily while waiting for the urine culture to finalized. 5. Will follow up on clinical condition and culture to further adjust medication if needed. Thank you for this consultation. Will follow this patient along with you. MMODL / IJN: [id number] / JUAN M
[2018-07-01 11:29] LABS: Glucose,Whole Blood 110 mg/dL (75-99)
[2018-07-01 11:40] LABS: Lymphocytes # (M) 1.25 k/uL (1.0-4.8); Monocytes # (M) 0.72 k/uL (0-1.0); Neutrophils # (M) 1.82 k/uL (1.3-7.7); Neutrophils % (M) 48 %; Nucleated Red Blood Cells 0 /100 WBC (0-0); Total Cells Counted 100
[2018-07-01] MEDS: MULTIVITAMINS, THERA 1 EACH TAB PO SCH (11:45)
--- NOTE | 2018-07-01 12:17 | CONS ---
CONSULTATION This is a 72-year-old gentleman who has been admitted to [facility] with a history of mental status change with unresponsiveness. He has been admitted previously. He had a bilateral carotid artery surgery done in the past, detail is not known and had an ultrasound of the carotid which shows left side totally occluded. The right side was not visualized. Patient was seen in his room and history was obtained from the nurses. Patient is not arousable, does not talk. SURGICAL PAST HISTORY: Patient had bilateral carotid surgery in the past resulting in left carotid causes the right side stroke in the past. Patient has history of diabetes mellitus, history of multiple sclerosis, history of COPD. Patient was seen in his room. His neck is supple. No bruit appreciated. Chest, a few crackles at the lung bases. Abdomen is soft. IMPRESSION: Left carotid totally occluded, right carotid not visualized, history of bilateral carotid endarterectomy. At this point, there is no role of surgical intervention with total occlusion of the carotid artery. Patient has a high risk for any surgical intervention. CT scan was reviewed. There is no acute intracranial infarction noted. There is old right parietal cortical infarct. Prognosis guarded. MMODL / IJN: [id number] /
[2018-07-01] MEDS: DILTIAZEM 50 MG in SODIUM CHLORIDE 0.9% 40 ML IV SCH ×2 (12:31→21:00)
[2018-07-01] MEDS: POTASSIUM CHLORIDE 20 MEQ in WATER FOR INJECTION 1 100ML.BAG IVPB SCH ×3 (12:32→16:30)
--- NOTE | 2018-07-01 14:25 | P.PN ---
Subjective Progress Note Date: 07/01/18 Principal diagnosis: Altered mental status This is a 72-year-old male continuing to be evaluated by the neurology service. He has a history of multiple sclerosis and an ischemic stroke with left hemiparesis. He had a very recent severe urinary tract infection. He was found yesterday to have alteration of consciousness. Initial computed tomography scan of the brain showed an old right parietal lower stroke. Carotid Doppler showed left internal carotid artery occlusion with difficult visualization of the right side due to torticollis. An MRI of the brain was ordered. At the time of my exam he is being prepped for that MRI. The delay was due to needing clearance from cardiology regarding his Cardizem drip. At the time of my exam he is lying comfortably in bed in no acute distress. Objective - Vital Signs Vital signs: Vital Signs Temp 99.4 F 07/01/18 11:40 Pulse 74 07/01/18 11:40 Resp 18 07/01/18 11:40 BP 170/76 07/01/18 11:40 Pulse Ox 100 07/01/18 11:40 Intake & Output 06/30/18 07/01/18 07/01/18 18:59 06:59 18:59 Intake Total 339.25 50 Output Total 2200 Balance -1860.75 50 Weight 75.5 kg Intake: Intake, IV Titration 339.25 50 Amount Diltiazem 50 mg In Sodium 39.25 50 Chloride 0.9% 40 ml @ 5 MG/HR 5 mls/hr IV .Q10H MIKI Rx#:[id number] Sodium Chloride 0.9% 1, 300 000 ml @ 100 mls/hr IV . Q10H MIKI Rx#:[id number] Output: Urine 2200 Other: Voiding Method Indwelling Catheter Indwelling Catheter Indwelling Catheter # Voids 3 # Bowel Movements 1 - Constitutional General appearance: Present: no acute distress - EENT Eyes: Present: PERRLA. Absent: abnormal pupil, ptosis - Neck Details: Torticollis - Respiratory Respiratory: negative: prolonged expiration, prolonged inspiration - Cardiovascular Rhythm: regular - Gastrointestinal General gastrointestinal: Absent: distended, tenderness - Neurologic Neurologic Comment(s): The patient is awake and responds minimally to verbal commands. He will squeeze hands. He is nonverbal at this time. He has significant spasticity on the right with contractors on the left from his previous stroke. - Labs CBC & Chem 7: 07/01/18 09:07 07/01/18 09:07 Labs: Abnormal Lab Results - Last 24 Hours (Table) 06/30/18 06/30/18 07/01/18 Range/Units 17:13 20:39 05:59 WBC (3.8-10.6) k/uL RBC (4.30-5.90) m/uL Hgb (13.0-17.5) gm/dL Hct (39.0-53.0) % MCV (80.0-100.0) fL RDW (11.5-15.5) % Plt Count (150-450) k/uL Sodium (137-145) mmol/L Potassium (3.5-5.1) mmol/L Chloride (98-107) mmol/L Carbon Dioxide (22-30) mmol/L BUN (9-20) mg/dL Creatinine (0.66-1.25) mg/dL Glucose (74-99) mg/dL POC Glucose (mg/dL) 142 H 141 H 120 H (75-99) mg/dL ALT (21-72) U/L Total Creatine Kinase (55-170) U/L Troponin I (0.000-0.034) ng/mL Albumin (3.5-5.0) g/dL TSH (0.465-4.680) mIU/L 07/01/18 07/01/18 07/01/18 Range/Units 06:30 06:30 09:07 WBC 3.5 L (3.8-10.6) k/uL RBC 3.13 L 3.11 L (4.30-5.90) m/uL Hgb 9.9 L 10.0 L (13.0-17.5) gm/dL Hct 31.8 L 31.7 L (39.0-53.0) % MCV 101.4 H 101.8 H (80.0-100.0) fL RDW 16.9 H 17.2 H (11.5-15.5) % Plt Count 143 L (150-450) k/uL Sodium 152 H (137-145) mmol/L Potassium 3.4 L (3.5-5.1) mmol/L Chloride 115 H (98-107) mmol/L Carbon Dioxide 32 H (22-30) mmol/L BUN 21 H (9-20) mg/dL Creatinine 1.27 H (0.66-1.25) mg/dL Glucose 117 H (74-99) mg/dL POC Glucose (mg/dL) (75-99) mg/dL ALT 18 L (21-72) U/L Total Creatine Kinase (55-170) U/L Troponin I (0.000-0.034) ng/mL Albumin 3.2 L (3.5-5.0) g/dL TSH (0.465-4.680) mIU/L 07/01/18 07/01/18 07/01/18 Range/Units 09:07 09:07 11:22 WBC (3.8-10.6) k/uL RBC (4.30-5.90) m/uL Hgb (13.0-17.5) gm/dL Hct (39.0-53.0) % MCV (80.0-100.0) fL RDW (11.5-15.5) % Plt Count (150-450) k/uL Sodium 149 H (137-145) mmol/L Potassium 3.0 L (3.5-5.1) mmol/L Chloride 115 H (98-107) mmol/L Carbon Dioxide (22-30) mmol/L BUN (9-20) mg/dL Creatinine (0.66-1.25) mg/dL Glucose 112 H (74-99) mg/dL POC Glucose (mg/dL) 110 H (75-99) mg/dL ALT 20 L (21-72) U/L Total Creatine Kinase 35 L (55-170) U/L Troponin I 0.042 H* (0.000-0.034) ng/mL Albumin 3.3 L (3.5-5.0) g/dL TSH 0.311 L (0.465-4.680) mIU/L Microbiology - Last 24 Hours (Table) 06/29/18 21:39 Urine Culture - Final Urine,Catheterized Nina albicans 06/29/18 21:39 Blood Culture Gram Stain - Preliminary Blood Blood Culture - Preliminary Coagulase Negative Staph 06/29/18 21:39 Blood Culture - Final Blood Assessment and Plan (1) Multiple sclerosis Current Visit: Yes Status: Chronic Code(s): G35 - MULTIPLE SCLEROSIS SNOMED Code(s): 35304326 (2) Spasticity as late effect of cerebrovascular accident (CVA) Current Visit: Yes Status: Chronic Code(s): I69.398 - OTHER SEQUELAE OF CEREBRAL INFARCTION; R25.9 - UNSPECIFIED ABNORMAL INVOLUNTARY MOVEMENTS SNOMED Code(s): 723489336678417 (3) History of stroke Current Visit: Yes Status: Chronic Code(s): Z86.73 - PRSNL HX OF TIA (TIA), AND CEREB INFRC W/O RESID DEFICITS SNOMED Code(s): 261658216 (4) Left hemiparesis Current Visit: Yes Status: Chronic Code(s): G81.94 - HEMIPLEGIA, UNSPECIFIED AFFECTING LEFT NONDOMINANT SIDE SNOMED Code(s): 282914920 (5) Altered mental status Current Visit: Yes Status: Acute Code(s): R41.82 - ALTERED MENTAL STATUS, UNSPECIFIED SNOMED Code(s): 774365237 (6) UTI (urinary tract infection) Current Visit: Yes Status: Acute Code(s): N39.0 - URINARY TRACT INFECTION, SITE NOT SPECIFIED SNOMED Code(s): 62706604 Plan: This patient has significant baseline neurological deficits from his advanced multiple sclerosis and previous ischemic strokes. He was having some new right- sided spasticity. We have increased his baclofen and this seems to be helping a little bit. MRI of the brain was ordered and at the time of my exam he is being prepped for that. An EEG has been performed. Continue treatment of his urinary tract infection. Continue neurological checks. We will continue to follow and make recommendations based on the above study. I have performed a history and physical on the above patient. I have reviewed the above note, and agree.
--- NOTE | 2018-07-01 15:39 | MR ---
EXAMINATION TYPE: MR brain wo/w con DATE OF EXAM: 07/01/2018 COMPARISON: 06/29/2018 CT brain HISTORY: MS vs CVA TECHNIQUE: Multiplanar, multisequence images of the brain and brainstem is performed without and with IV contras t, utilizing 7.5 mL intravenous Gadavist . FINDINGS: Diffusion weighted images demonstrate no evidence of a recent infarct or other diffusion ab normality. There is an old lacunar infarct of the left inferior cerebellar hemisphere. Encephalomala evan is also seen within the right frontoparietal region from prior infarct. No enhancement is seen in the regions. There are bilateral subdural hygromas measuring approximately 6 mm on the right and 5 m m on the left. No midline shift. The ventricular system and cisternal spaces are diffusely enlarged and symmetric compatible with age-related volume loss. There are confluent areas of T2/FLAIR hyperint ensity within the subcortical and periventricular white matter, most commonly on the basis of chronic microangiopathy and overall moderate to severe in degree. On axial T1 postcontrast nonfat sat image 7 and 8 and sagittal postcontrast image 57 there is an osman gated area of abnormal enhancement. No corresponding T2 or FLAIR signal abnormality is seen. No surro unding vasogenic edema. This is favored to represent a developmental venous anomaly given its elongat ed tubular morphologically on sagittal images, however masses less likely. Midline structures demonstrate normal morphology. The craniocervical junction appears within normal limits. The dural venous sinuses appear patent. Minimal mucosal thickening is seen within the ethmoid sinuses. The remaining visualized sinuses are clear and the globes are intact. There is patchy bone marrow signal within the clivus and parietal bone as well as the occipital bone such as on T1 noncont rast, nonfat sat sagittal image 10, however there is no discrete enhancement of these regions. IMPRESSION: 1. 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 Single sequence SWI could aid in clarifying developmental venous anomaly versus enhancing mass. There is also lower suspicion for mass as there is no T2 or FLAIR cor responding signal abnormality. 2. Heterogeneity of the bone marrow without enhancement. Therefore correlation with CBC is recommende d to evaluate for anemia or myeloproliferative disorder as diffuse infiltrative bone marrow metastasi s would be less likely given lack of enhancement. 3. Encephalomalacia in the distribution of the right middle cerebral artery from prior remote infarct . Old lacunar injury of the left cerebellar hemisphere is also seen. 3. Age-related cerebral volume loss and cerebellar volume loss. Moderate to severe nonspecific white matter change, most commonly on the basis of chronic microangiopathy. 4. Bilateral subdural hygromas measuring approximately 6 mm on the right and 5 mm on the left. No mid line shift.
[2018-07-01 15:55] LABS: Appearance,Urine Clear (Clear); Bilirubin,Urine Negative (Negative); Blood,Urine Small (Negative); Color,Urine Light Yellow; Glucose,Urine (UA) Negative (Negative); Ketones,Urine Negative (Negative); Leukocyte Esterase,Urine Large (Negative); Nitrite,Urine Negative (Negative); PH, Urine 6.5 (5.0-8.0); Protein,Urine Trace (Negative); RBC,Urine 2 /hpf (0-5); Specific Gravity,Urine 1.011 (1.001-1.035); Squamous Epithelial Cell,Urine <1 /hpf (0-4); Urobilinogen,Urine <2.0 mg/dL (<2.0)
[2018-07-01] MEDS ORDERED: VANCOMYCIN 1,500 MG in SODIUM CHLORIDE 0.9% 250 ML IVPB SCH ×3 (16:00)
[2018-07-01 16:30] LABS: Glucose,Whole Blood 101 mg/dL (75-99)
--- NOTE | 2018-07-01 17:29 | PN ---
PROGRESS NOTE DATE OF SERVICE: 07/01/2018 Patient is a 72-year-old male who is seen lying in bed. He is awake, alert. Family is at the bedside and states that patient's mental status has improved significantly. The patient is able to answer yes-and-no questions with shaking his head or moving his eyes. Patient is hemodynamically stable, afebrile, in no acute distress. Patient denies any shortness of breath. PHYSICAL EXAMINATION: VITAL SIGNS: Temperature is 99.4, respiratory rate 18, heart rate 74, blood pressure 170/76, oxygen saturation 100% on room air. HEENT: Head is normocephalic, atraumatic. Neck is supple. LUNGS: Clear breath sounds. Decreased bases. HEART: S1 and S2 are heard. Not tachycardic. ABDOMEN: Soft. Bowel sounds are heard. EXTREMITIES: No edema. NEUROLOGIC: Patient is awake and alert and does respond by shaking his head yes or no to questions appropriately. LABS: White count 3.8, hemoglobin 10.0, hematocrit 31.7 with 150,000 platelets. Sodium is 149, potassium 3.0, chloride 115. CO2 is 30. Anion gap is 4. BUN is 20, creatinine 1.19, glucose 112. Lactic acid venous is 0.9. Calcium is 8.7, phosphorus 2.7, magnesium 1.9, total bilirubin 0.4. AST is 18. ALT is 20. Alkaline phosphatase is 63. CK is 35. MB is 1.0 with relative index of 2.9, troponin 0.042. BNP is 3920. Total protein is 7.0. Albumin is 3.3. TSH is 0.311. IMAGING: MRI of the brain has been completed and is pending. IMPRESSION: 1. Change in mental status; secondary to metabolic encephalopathy is likely. 2. Urinary tract infection with sepsis. 3. Doubt aspiration pneumonia. PLAN: Continue current medications, which have been reviewed. Continue antibiotics per Infectious Disease. Continue GI and DVT prophylaxis. We will follow patient closely with you, making further changes as necessary. MMODL / IJN: [id number] /
[2018-07-01] MEDS: METOPROLOL TARTRATE 5 MG/5 ML VIAL IVP SCH ×2 (17:59→23:46)
[2018-07-01 20:55] LABS: Glucose,Whole Blood 108 mg/dL (75-99)
--- NOTE | 2018-07-02 01:00 | PN ---
PROGRESS NOTE DATE OF SERVICE: 07/01/2018. REASON FOR FOLLOW UP: 1. Catheter associated urinary tract infection. 2. Bacteremia. INTERVAL HISTORY: The patient is currently afebrile. He seems to be more awake, alert. Denies any CP. No nausea vomiting has been noticed or any diarrhea. The patient himself remains to be normal. Unable to provide any history. EXAMINATION: Blood pressure 139/79 with a pulse of 74, temperature of 99.3. He is 100% 2 L nasal cannula. General description is an elderly male lying in bed in no distress. Respiratory system unlabored breathing. Clear to auscultation anteriorly. Heart S1, S2. Regular rate and rhythm no tenderness. LABS: Hemoglobin is 10, white count 3.8. BUN of 20, creatinine 1.191: Urine is currently showing a Nina albicans. DIAGNOSTIC IMPRESSION AND PLAN: 1. Patient admitted in the hospital with mental status changes, concern for a urinary tract infection. The patient did have significantly positive UA urine now showing Nina albicans in the course of possible Lewis: repeat urine is still positive and add oral Diflucan. 2. Patient with a positive blood culture with coagulase-negative staph could be a skin contamination. Vanco will be discontinued to decrease risk of nephrotoxicity. Continue supportive care. MMODL / IJN: [id number] / JUAN M
[2018-07-02] MEDS: SODIUM CHLORIDE 0.9% 1,000 ML IV SCH ×2 (01:45→12:09)
[2018-07-02 05:48] LABS: Glucose,Whole Blood 102 mg/dL (75-99)
[2018-07-02] MEDS: FUROSEMIDE 40 MG TAB PO SCH ×2 (06:00→17:06)
[2018-07-02] MEDS: METOPROLOL TARTRATE 5 MG/5 ML VIAL IVP SCH ×3 (06:02→17:13)
[2018-07-02] MEDS: ONDANSETRON 4 MG/2 ML VIAL IVP SCH ×3 (06:02→17:10)
[2018-07-02] MEDS: DILTIAZEM 50 MG in SODIUM CHLORIDE 0.9% 40 ML IV SCH ×2 (06:17→16:43)
--- NOTE | 2018-07-02 07:57 | P.CRDCN ---
History of Present Illness Consult date: 07/02/18 Requesting physician: Thomas Crenshaw Reason for Consult (text): Mental status changes History of present illness: This is a 72-year-old male patient who came to the emergency room on the of this month because of mental status changes. He also was having some difficulty in being able to eat, had a recent aspiration pneumonia, was initially in the rehab and currently is in a palliative care. Patient apparently became less and less responsive. Came to the emergency room for these reasons. He has a known history of CVA, history of multiple sclerosis, bilateral carotid endarterectomy, diabetes, prior history of smoking, hyperlipidemia. Cardiology consultation was requested because of an arrhythmia. His initial CT of the brain performed on admission here showed old right parietal cortical infarct with no acute abnormality. Chest x-ray did not reveal any active cardiopulmonary disease. His initial EKG showed a normal sinus rhythm with no acute changes. Subsequent EKG showed a wide complex tachycardia which appears to be atrial fibrillation. An echocardiogram with Doppler study was performed here which revealed an ejection fraction of 50-55%. Blood pressure 172/78 heart rate 88, temperature 99.3, he is 97% on 2 L of oxygen. White blood cell count 3.8, hemoglobin 10.0, platelet count 150. Sodium 149, potassium 3.5, BUN 20, creatinine 1.1. BNP level 3920. Troponin 0.012, 0.042. TSH 0.3. The patient is currently unable to take anything orally , he is on a Cardizem drip at 5 mg per hour. He is also getting IV Lasix at this time. We will put the patient on metoprolol IV every 6 hourly. Past Medical History Past Medical History: Diabetes Mellitus, Hyperlipidemia, Musculoskeletal Disorder History of Any Multi-Drug Resistant Organisms: None Reported Additional Past Surgical History / Comment(s): right shoulder reverse repair, lithotrispy Past Psychological History: Depression Smoking Status: Former smoker Past Alcohol Use History: None Reported Past Drug Use History: None Reported Medications and Allergies Home Medications Medication Instructions Recorded Confirmed Type Amantadine HCl [Symmetrel] 100 mg PO BID 06/29/18 06/29/18 History Ascorbic Acid [Vitamin C] 1,000 mg PO DAILY 06/29/18 06/29/18 History Aspirin 81 mg PO DAILY 06/29/18 06/29/18 History Baclofen [Lioresal] 20 mg PO TID 06/29/18 06/29/18 History Cholecalciferol [Vitamin D3] 3,000 unit PO DAILY 06/29/18 06/29/18 History Citalopram Hydrobromide [CeleXA] 20 mg PO DAILY 06/29/18 06/29/18 History Cranberry 1200mg 1,200 mg PO DAILY 06/29/18 06/29/18 History Folic Acid 0.4 mg PO DAILY 06/29/18 06/29/18 History Furosemide [Lasix] 40 mg PO BID 06/29/18 06/29/18 History Montelukast [Singulair] 10 mg PO DAILY 06/29/18 06/29/18 History Multivitamins, Thera [Multivitamin 1 tab PO DAILY 06/29/18 06/29/18 History (formulary)] [place]-3 Fatty Acids/Fish Oil [Fish 1 cap PO DAILY 06/29/18 06/29/18 History Oil 1,000 mg Softgel] Potassium Chloride ER [K-Dur 10] 10 meq PO DAILY 06/29/18 06/29/18 History Simvastatin [Zocor] 20 mg PO DAILY 06/29/18 06/29/18 History Vitamin E (Dl,Tocopheryl Acet) 400 unit PO DAILY 06/29/18 06/29/18 History [Vitamin E] glyBURIDE 1.25 mg PO DAILY 06/29/18 06/29/18 History Allergies Allergy/AdvReac Type Severity Reaction Status Date / Time adhesive tape Allergy Rash/Hives Verified 06/29/18 21:37 codeine Allergy Rash/Hives Verified 06/29/18 21:35 Physical Exam Vitals: Vital Signs Temp Pulse Pulse Resp BP Pulse Ox 07/02/18 04:00 99.3 F 88 18 173/79 97 07/02/18 00:00 83 18 07/01/18 23:10 98.1 F 83 18 167/74 97 07/01/18 20:00 99.3 F 74 72 16 179/79 100 07/01/18 15:15 98.6 F 72 72 18 177/76 100 07/01/18 11:40 99.4 F 74 74 18 170/76 100 07/01/18 08:05 98.8 F 67 67 20 165/74 99 Intake and Output 07/01/18 07/02/18 07/02/18 22:59 06:59 14:59 Intake Total 572.417 346.417 Output Total 5 Balance 572.417 -1778.583 Intake: Intake, IV Titration 342.417 346.417 Amount Diltiazem 50 mg In Sodium 42.417 46.417 Chloride 0.9% 40 ml @ 5 MG/HR 5 mls/hr IV .Q10H [facility] Rx#:[id number] Sodium Chloride 0.9% 1, 300 300 000 ml @ 100 mls/hr IV . Q10H [facility] Rx#:[id number] Oral 230 Output: Urine 5 Other: Voiding Method Indwelling Catheter Indwelling Catheter # Voids 1 # Bowel Movements 1 Weight 68 kg PHYSICAL EXAMINATION: GENERAL: 72-year-old gentleman, lying in bed, having significant spasms on the right side of his body, in no acute distress HEENT: Head is atraumatic, normocephalic. Right facial spasms noted. Pupils equal, round. Sclera anicteric. Conjunctiva are clear. Mucous membranes of the mouth are moist. Neck is supple. There is no elevated jugular venous pressure. Carotid bruit is heard. HEART EXAMINATION: Heart S1, S2 normal. No murmur or gallop heard. CHEST EXAMINATION: Lungs are clear to auscultation and precussion. No chest wall tenderness is noted on palpation or with deep breathing. ABDOMEN: Soft, nontender. Bowel sounds are heard. No organomegaly noted. EXTREMITIES: 2+ peripheral pulses with no evidence of peripheral edema and no calf tenderness noted. NEUROLOGIC [patient is awake, responds mildly to verbal stimuli, does not make contact. Contractures present on the left side. Results 07/01/18 09:07 07/02/18 06:39 Cardiac Enzymes 07/01/18 07/01/18 07/01/18 Range/Units 06:30 09:07 09:07 AST 17 18 (17-59) U/L CK-MB (CK-2) 1.0 (0.0-2.4) ng/mL Troponin I 0.042 H* (0.000-0.034) ng/mL CBC 07/01/18 07/01/18 Range/Units 06:30 09:07 WBC 3.5 L 3.8 (3.8-10.6) k/uL RBC 3.13 L 3.11 L (4.30-5.90) m/uL Hgb 9.9 L 10.0 L (13.0-17.5) gm/dL Hct 31.8 L 31.7 L (39.0-53.0) % Plt Count 143 L 150 (150-450) k/uL Comprehensive Metabolic Panel 07/01/18 07/01/18 07/01/18 Range/Units 06:30 09:07 22:20 Sodium 152 H 149 H (137-145) mmol/L Potassium 3.4 L 3.0 L 3.5 (3.5-5.1) mmol/L Chloride 115 H 115 H (98-107) mmol/L Carbon Dioxide 32 H 30 (22-30) mmol/L BUN 21 H 20 (9-20) mg/dL Creatinine 1.27 H 1.19 (0.66-1.25) mg/dL Glucose 117 H 112 H (74-99) mg/dL Calcium 8.6 8.7 (8.4-10.2) mg/dL AST 17 18 (17-59) U/L ALT 18 L 20 L (21-72) U/L Alkaline Phosphatase 60 63 (38-126) U/L Total Protein 6.8 7.0 (6.3-8.2) g/dL Albumin 3.2 L 3.3 L (3.5-5.0) g/dL 07/02/18 Range/Units 06:39 Sodium (137-145) mmol/L Potassium 3.5 (3.5-5.1) mmol/L Chloride (98-107) mmol/L Carbon Dioxide (22-30) mmol/L BUN (9-20) mg/dL Creatinine (0.66-1.25) mg/dL Glucose (74-99) mg/dL Calcium (8.4-10.2) mg/dL AST (17-59) U/L ALT (21-72) U/L Alkaline Phosphatase (38-126) U/L Total Protein (6.3-8.2) g/dL Albumin (3.5-5.0) g/dL Current Medications Generic Name Dose Route Start Last Admin Trade Name Freq PRN Reason Stop Dose Admin Amantadine HCl 100 mg 06/30/18 21:00 07/01/18 20:58 Symmetrel PO Not Given BID [facility] Aspirin 81 mg 07/01/18 09:00 07/01/18 10:00 Aspirin PO Not Given DAILY [facility] Atorvastatin Calcium 10 mg 07/01/18 09:00 07/01/18 10:00 Lipitor PO Not Given DAILY [facility] Baclofen 20 mg 06/30/18 22:00 07/01/18 20:59 Lioresal PO Not Given QID [facility] Citalopram Hydrobromide 20 mg 07/01/18 09:00 07/01/18 10:00 Celexa PO Not Given DAILY [facility] Famotidine 20 mg 06/30/18 21:00 07/01/18 21:02 Pepcid IV 20 mg Q12HR [facility] Administration Fluconazole 100 mg 07/02/18 09:00 Diflucan PO DAILY [facility] Folic Acid 0.5 mg 07/01/18 09:00 07/01/18 10:01 Folic Acid PO Not Given DAILY [facility] Furosemide 40 mg 06/30/18 18:00 07/02/18 06:00 Lasix PO Not Given Q12H [facility] Glipizide 2.5 mg 07/01/18 09:00 07/01/18 10:01 Glucotrol PO Not Given DAILY [facility] Heparin Sodium (Porcine) 5,000 unit 06/30/18 21:00 07/01/18 21:02 Heparin SQ 5,000 unit Q12HR [facility] Administration Ceftriaxone Sodium 1,000 mg/ 50 mls @ 100 mls/hr 06/30/18 12:00 07/01/18 23: 45 Sodium Chloride IVPB 100 mls/hr Q12H [facility] Administration Sodium Chloride 1,000 mls @ 100 mls/hr 06/29/18 23:45 07/02/18 01:45 Saline 0.9% IV 100 mls/hr .Q10H [facility] Administration Diltiazem HCl 50 mg/ Sodium 50 mls @ 5 mls/hr 06/30/18 04:30 07/02/18 06:17 Chloride IV 5 mg/hr .Q10H [facility] 5 mls/hr Administration 5 MG/HR Metoprolol Tartrate 5 mg 06/30/18 04:21 Lopressor IVP Q6HR PRN Heart Rate - HIGH Metoprolol Tartrate 2.5 mg 07/01/18 18:00 07/02/18 06:02 Lopressor IVP 2.5 mg Q6HR [facility] Administration Montelukast Sodium 10 mg 07/01/18 09:00 07/01/18 10:01 Singulair PO Not Given DAILY [facility] Multivitamins 1 each 07/01/18 12:00 07/01/18 11:45 Theragran PO Not Given DAILY@1200 [facility] Ondansetron HCl 4 mg 06/30/18 06:00 07/02/18 06:02 Zofran IVP 4 mg Q6HR [facility] Administration Potassium Chloride 10 meq 06/30/18 12:45 07/01/18 10:01 K-Dur 10 PO Not Given DAILY [facility] Intake and Output 07/01/18 07/02/18 07/02/18 22:59 06:59 14:59 Intake Total 572.417 346.417 Output Total 2125 Balance 572.417 -1778.583 Intake: Intake, IV Titration 342.417 346.417 Amount Diltiazem 50 mg In Sodium 42.417 46.417 Chloride 0.9% 40 ml @ 5 MG/HR 5 mls/hr IV .Q10H [facility] Rx#:[id number] Sodium Chloride 0.9% 1, 300 300 000 ml @ 100 mls/hr IV . Q10H [facility] Rx#:[id number] Oral 230 Output: Urine 2125 Other: Voiding Method Indwelling Catheter Indwelling Catheter # Voids 1 # Bowel Movements 1 Weight 68 kg 07/01/18 09:07 07/02/18 06:39 EKG Interpretations (text) Initial EKG shows a normal sinus rhythm with no acute changes. Subsequent EKG shows a wide-complex tachycardia. Assessment and Plan Plan: Assessment and plan #1 altered mental status changes #2 wide-complex tachycardia #3 multiple sclerosis with evidence of specificity #4 history of ischemic stroke with left-sided hemiparesis #5 UTI #6 hyperthyroidism #7 acute UTI Plan Echocardiogram with Doppler study revealed a normal left ventricular systolic function, we'll put the patient on 5 mg of IV metoprolol 6 hourly as he is nothing by mouth. Further recommendations to follow. DNP note has been reviewed, I agree with a documented findings and plan of care. Patient was seen and examined.
--- NOTE | 2018-07-02 08:10 | PN ---
PROGRESS NOTE SUBJECTIVE: This is a 72-year-old white male who has carotid stenosis bilaterally 100% blocked. Vascular doctor saw him. Says no surgery will be done. He is being treated for UTI and sepsis with altered mental status. CARDIOVASCULAR: S1, S2. Lungs clear. Psych: He just moans, does not really talk. ASSESSMENT: 1. Altered mental status. 2. Urinary tract infection. 3. Metabolic encephalopathy. 4. Prior stroke with carotid stenosis. Please see further orders by multiple specialists. Continue broad-spectrum antibiotics. MMODL / IJN: [id number] /
[2018-07-02] MEDS ORDERED: FLUCONAZOLE 100 MG TAB PO SCH (09:00)
[2018-07-02] MEDS ORDERED: FLUCONAZOLE IN NACL,ISO-OSM 100 MG in SALINE 1 50ML.BAG IVPB SCH (09:00)
[2018-07-02] MEDS: AMANTADINE HCL 100 MG CAP PO SCH (10:08)
[2018-07-02] MEDS: FAMOTIDINE 20 MG/2 ML VIAL IV SCH (10:08)
[2018-07-02] MEDS: ASPIRIN 81 MG PO SCH (10:08)
[2018-07-02] MEDS: ATORVASTATIN 10 MG TAB PO SCH (10:08)
[2018-07-02] MEDS: HEPARIN SODIUM,PORCINE 5,000 UNIT/ML 1 ML VIAL SQ SCH (10:08)
[2018-07-02] MEDS: BACLOFEN 10 MG TAB PO SCH ×3 (10:09→17:06)
[2018-07-02] MEDS: FOLIC ACID 1 MG TAB PO SCH (10:09)
[2018-07-02] MEDS: POTASSIUM CHLORIDE ER 10 MEQ TAB.ER.PRT PO SCH (10:09)
[2018-07-02] MEDS: CITALOPRAM HYDROBROMIDE 20 MG TAB PO SCH (10:09)
[2018-07-02] MEDS: MONTELUKAST 10 MG TAB PO SCH (10:09)
--- NOTE | 2018-07-02 11:27 | EEG ---
ELECTROENCEPHALOGRAM REPORT DATE OF SERVICE: 07/01/2018 REASON FOR TESTING: Altered mental status. DESCRIPTION OF THE PROCEDURE: This EEG was performed using a 21 channel digital electroencephalograph, following international 10-20 system. DESCRIPTION OF THE RECORDING: From the beginning of the tracing, and with patient's eyes closed, the background rhythm was mostly consisting of 7 Hz theta frequency in the posterior occipital leads. No obvious asymmetry is seen. Frequent muscle artifacts are noticed. Photic stimulation was performed with no driving response seen. No pathological waves were elicited. Hyperventilation was not performed. The patient remains awake throughout the tracing. No epileptiform discharges were seen. His EKG lead showed a regular rate and rhythm. INTERPRETATION: This awake EEG is abnormal due to the presence of generalized slowing of the background rhythm, mostly in the theta range. This is consistent with mild encephalopathy. No epileptiform discharges were seen. The absence of epileptiform discharges does not rule out the diagnosis of epilepsy; therefore clinical correlation is recommended. MMFRANCIS / ORALIA: [id number] /
[2018-07-02 11:53] LABS: Glucose,Whole Blood 111 mg/dL (75-99)
[2018-07-02] MEDS: MULTIVITAMINS, THERA 1 EACH TAB PO SCH (12:03)
--- NOTE | 2018-07-02 13:40 | P.PN ---
Subjective Progress Note Date: 07/02/18 This is a 72-year-old male being seen examined and evaluated today on rounds for follow-up. Patient is resting up in bed he is awake and alert. Family is at bedside. The patient is able to answer yes and no questions appropriately with shaking his head or moving his eyes. He has been hemodynamically stable there has been no shortness of breath cough or acute gesturing. Apparently the patient has had some difficulty with swallowing and may require PEG tube. Objective - Vital Signs Vital signs: Vital Signs Temp 99.4 F 07/02/18 08:50 Pulse 96 07/02/18 08:50 Resp 18 07/02/18 08:50 BP 173/78 07/02/18 08:50 Pulse Ox 98 07/02/18 08:50 Intake & Output 07/01/18 07/02/18 07/02/18 18:59 06:59 18:59 Intake Total 280 688.834 240 Output Total 1100 2125 Balance -820 -1436.166 240 Weight 68 kg Intake: Intake, IV Titration 50 688.834 Amount Diltiazem 50 mg In Sodium 50 88.834 Chloride 0.9% 40 ml @ 5 MG/HR 5 mls/hr IV .Q10H [facility] Rx#:[id number] Sodium Chloride 0.9% 1, 600 000 ml @ 100 mls/hr IV . Q10H [facility] Rx#:[id number] Oral 230 240 Output: Urine 1100 2125 Other: Voiding Method Indwelling Catheter Indwelling Catheter Indwelling Catheter # Voids 1 # Bowel Movements 1 - Exam GENERAL EXAM: Alert, active, comfortable in no apparent distress. HEAD: Normocephalic. EYES: Normal reaction of pupils, equal size. NOSE: Clear with pink turbinates. THROAT: No erythema or exudates. NECK: No masses, no JVD. LUNGS: Equal air entry with no crackles, wheeze, rhonchi or dullness. Diminished bases CVS: S1 and S2 normal with no audible mumurs, regular rhythm. ABDOMEN: No hepatosplenomegaly, normal bowel sounds, no guarding or rigidity. EXTREMITIES: No edema noted, pedal pulses palpable. CENTRAL NERVOUS SYSTEM: Alert and awake does shake his head yes or no appropriately - Labs CBC & Chem 7: 07/01/18 09:07 07/02/18 06:39 Labs: Abnormal Lab Results - Last 24 Hours (Table) 07/01/18 07/01/18 07/01/18 Range/Units 16:13 20:53 Unknown POC Glucose (mg/dL) 101 H 108 H (75-99) mg/dL Urine Protein Trace H (Negative) Urine Blood Small H (Negative) Ur Leukocyte Esterase Large H (Negative) Urine WBC 66 H (0-5) /hpf Urine WBC Clumps Few H (None) /hpf 07/02/18 07/02/18 Range/Units 05:45 11:51 POC Glucose (mg/dL) 102 H 111 H (75-99) mg/dL Urine Protein (Negative) Urine Blood (Negative) Ur Leukocyte Esterase (Negative) Urine WBC (0-5) /hpf Urine WBC Clumps (None) /hpf Microbiology - Last 24 Hours (Table) 06/30/18 22:53 Blood Culture Gram Stain - Preliminary Blood 07/01/18 Unknown Urine Culture - Preliminary Urine,Voided 06/30/18 22:53 Blood Culture - Final Blood Assessment and Plan Assessment: Assessment Change in mental status, secondary to metabolic encephalopathy Urinary tract infection with sepsis Possible aspiration pneumonia Acute hypoxic respiratory failure requiring supplemental oxygen Multiple sclerosis History of ischemic stroke with left-sided hemiparesis Plan Medications have been reviewed and will be continued as ordered. Continue with pulmonary hygiene, coughing and deep breathing exercises, and supportive care. Supplemental oxygen to maintain oxygen saturations of 92% or better. Continue nebulizer treatments. Appreciate other consults input and recommendations Swallow evaluation and speech on consult appreciate recommendations GI and DVT prophylaxis. We will continue to monitor labs/results and adjust treatment as necessary. Further recommendations pending. I, the signing physician performed an examination of the patient, discussed and directed their management with the nurse practitioner. I have reviewed the nurse practitioner's note and agree with the documented findings, orders and plan of care.
[2018-07-02] MEDS ORDERED: IPRATROPIUM-ALBUTEROL 3 ML NEB INHALATION SCH (16:00)
[2018-07-02 16:35] VITALS: BP 192/84; PULSE 92; RESP 16; TEMP 99.5
[2018-07-02 16:51] LABS: Glucose,Whole Blood 107 mg/dL (75-99)
--- NOTE | 2018-07-02 17:01 | PN ---
PROGRESS NOTE DATE OF SERVICE: 07/02/2018 REASON FOR FOLLOWUP: 1. Yeast catheter-associated urinary tract infection. 2. Positive blood culture, more likely contamination. INTERVAL HISTORY: The patient is currently afebrile. He seems to have been breathing comfortably. The patient remains n.p.o. because of risk of aspiration. No nausea or vomiting has been noticed or any diarrhea. Patient himself was unable to provide any history. PHYSICAL EXAMINATION: Blood pressure is 179/78 with a pulse of 76, temperature 98.6. He is 99% on 2 L nasal cannula. General description is an elderly male lying in bed in no distress. RESPIRATORY SYSTEM: Unlabored breathing. Clear to auscultation anteriorly. HEART: S1, S2. Regular rate and rhythm. ABDOMEN: Soft. No tenderness. LABS: No new labs have been obtained today. His urine is showing Nina albicans, blood culture with Staph epi. DIAGNOSTIC IMPRESSION AND PLAN: 1. Patient with positive blood culture with Staphylococcus epidermidis, likely skin contamination. Vancomycin has been discontinued. No need for further treatment for the same. 2. Patient with Nina albicans catheter-associated urinary tract infection. Lewis has already been changed. Diflucan has been switched to IV, as the patient is currently n.p.o. Family present at the bedside. Their questions were answered. MMODL / IJN: [id number] /
--- NOTE | 2018-07-02 19:04 | P.PN ---
Subjective Progress Note Date: 07/02/18 Patient is a pleasant 72-year-old male who is being followed by the neurology service for altered mental status. Patient has history of multiple sclerosis and an ischemic stroke with left hemiparesis. Patient was recently treated for severe urinary tract infection. Patient was at home and was noted to have altered mental status and was brought to [facility] for evaluation. Computed tomography scan of the brain showed an old right parietal stroke. Carotid Doppler showed left internal carotid artery occlusion with difficult visualization of the right side due to torticollis. MRI of the brain was done and showed abnormal enhancement within the left cerebral hemisphere and an area of elongated morphology which may be a venous anomaly versus enhancing mass. MRI showed encephalomalacia consistent with old the corner injury of the left cerebellar hemisphere. Patient has moderate to severe nonspecific white matter changes most commonly seen on the basis of chronic microangiopathy. Patient also was noted to have bilateral subdural hygromas measuring 6 mm on the right and 5 mm on the left. Patient also had cardiac arrhythmia and cardiology is following. At the time of my evaluation, patient is resting comfortably in bed and appears to be in no acute distress. Objective - Vital Signs Vital signs: Vital Signs Temp 99.5 F 07/02/18 16:00 Pulse 90 07/02/18 16:21 Resp 16 07/02/18 16:00 BP 192/84 07/02/18 16:00 Pulse Ox 99 07/02/18 16:00 Intake & Output 07/01/18 07/02/18 07/02/18 18:59 06:59 18:59 Intake Total 280 688.834 50 Output Total 1100 2125 800 Balance -820 -1436.166 -750 Weight 68 kg Intake: Intake, IV Titration 50 688.834 50 Amount Diltiazem 50 mg In Sodium 50 88.834 50 Chloride 0.9% 40 ml @ 5 MG/HR 5 mls/hr IV .Q10H [facility] Rx#:[id number] Sodium Chloride 0.9% 1, 600 000 ml @ 100 mls/hr IV . Q10H [facility] Rx#:[id number] Oral 230 0 Output: Urine 1100 2125 800 Other: Voiding Method Indwelling Catheter Indwelling Catheter Indwelling Catheter # Voids 1 # Bowel Movements 1 - Exam PHYSICAL EXAM: GENERAL APPEARANCE: Patient is a male who appears to be in no acute distress. HEENT: Normocephalic, atraumatic, no facial asymmetry is seen. Neck is supple with no masses felt. CARDIOVASCULAR: Regular rate and rhythm. ABDOMEN: Nontender, nondistended. EXTREMITIES: Show spasticity and contracture NEUROLOGICAL EXAM: A meaningful neurological exam could not be performed due to patient minimal response. He is awake and alert and will nod head at times to questions asked. Patient has significant spasticity of the right side with contracture on the left side from previous stroke. No obvious facial asymmetry is noted. No tremors or seizure-like activity is seen. - Labs CBC & Chem 7: 07/01/18 09:07 07/02/18 06:39 Labs: Abnormal Lab Results - Last 24 Hours (Table) 07/01/18 07/02/18 07/02/18 Range/Units 20:53 05:45 11:51 POC Glucose (mg/dL) 108 H 102 H 111 H (75-99) mg/dL 07/02/18 Range/Units 16:47 POC Glucose (mg/dL) 107 H (75-99) mg/dL Microbiology - Last 24 Hours (Table) 06/29/18 21:39 Blood Culture Gram Stain - Final Blood Blood Culture - Final Staphylococcus epidermidis 06/30/18 22:53 Blood Culture Gram Stain - Preliminary Blood 07/01/18 Unknown Urine Culture - Preliminary Urine,Voided 06/30/18 22:53 Blood Culture - Final Blood Assessment and Plan Plan: Impression: 1. Multiple sclerosis 2. Abnormal MRI/neurosurgical consult requested 3. History of stroke 4. Altered mental status 5. Left hemiparesis 6. Right-sided spasticity Recommendation: Patient has significant neurological deficits from advanced multiple sclerosis combined with previous ischemic strokes. MRI of the brain showed abnormal enhancement within left inferior cerebral hemisphere that demonstrates elongated morphology which may represent a venous anomaly versus enhancing mass. Patient also has bilateral subdural hygromas. I recommend transfer to [facility] for neurosurgical consult. Family agrees. I performed an examination of the patient and discussed the management with the PLASTICS FACTORY WORKER. I have reviewed the PLASTICS FACTORY WORKER notes and agree with the findings and plan of care.
[2018-07-02] MEDS ORDERED: ORPHENADRINE 30 MG/ML 2 ML VIAL IVP SCH (21:00)
--- NOTE | 2018-08-03 07:05 | DS ---
DISCHARGE SUMMARY DATE OF ADMISSION: 06/29/2018 DATE OF DISCHARGE: 07/02/2018 HOME MEDICATIONS: 1. Vitamin E 400 units daily. 2. Aspirin 81 mg daily. 3. Vitamin C 1000 daily. 4. Multivitamin daily. 5. Folic acid 0.4 mg daily. 6. Vitamin D3, 3000 units daily. 7. Glyburide mg daily. 8. Zocor 20 daily. 9. Potassium chloride 10 mEq daily. 10.Singular 10 mg daily. 11.Lasix 40 mg b.i.d. 12.Lioresal 20 mg t.i.d. 13.Symmetrel 100 b.i.d. 14.Citalopram 20 daily. 15.[place] fatty acids daily. 16.Cranberry extract daily. CONDITION: Stable. PROGNOSIS: Guarded. Ambulate as tolerated. HOSPITAL COURSE OF EVENTS: This is a 72-year-old white male was seen by Pulmonology and Neurology and Cardiology while admitted, diagnosed with acute hypoxic respiratory failure, multiple sclerosis, history of ischemic stroke with left-sided hemiparesis. He had change in mental status secondary to metabolic encephalopathy secondary to UTI with sepsis and aspiration pneumonia, was treated with multiple antibiotics per Infectious Disease and potato bucker and cardiology cleared him from a cardiac standpoint. To follow up as an outpatient. MMODL / IJN: [id number] /
== END 2018-07-02 17:29 | disposition short-term general hospital (02) | DRG 871 ==
LOC: EC 21:28 → 3SCARD 23:37
PROVIDERS: ADMIT Family Medicine; ATTEND Family Medicine
DX: A41.9 Sepsis, unspecified organism (principal); G93.41 Metabolic encephalopathy; J96.01 Acute respiratory failure with hypoxia; J69.0 Pneumonitis due to inhalation of food and vomit; G96.0 Cerebrospinal fluid leak; I69.354 Hemiplegia and hemiparesis following cerebral infarction affecting left non-dominant side; B37.49 Other urogenital candidiasis; I50.32 Chronic diastolic (congestive) heart failure; D64.9 Anemia, unspecified; E05.90 Thyrotoxicosis, unspecified without thyrotoxic crisis or storm; E11.9 Type 2 diabetes mellitus without complications; E78.5 Hyperlipidemia, unspecified; E87.6 Hypokalemia; G35 Multiple sclerosis; G93.89 Other specified disorders of brain; I10 Essential (primary) hypertension; R00.0 Tachycardia, unspecified; I69.998 Other sequelae following unspecified cerebrovascular disease; J44.9 Chronic obstructive pulmonary disease, unspecified; M43.6 Torticollis; F32.9 Major depressive disorder, single episode, unspecified; I11.0 Hypertensive heart disease with heart failure; R26.9 Unspecified abnormalities of gait and mobility; M19.90 Unspecified osteoarthritis, unspecified site; Z79.82 Long term (current) use of aspirin; Z79.899 Other long term (current) drug therapy; Z79.84 Long term (current) use of oral hypoglycemic drugs; Z87.891 Personal history of nicotine dependence; Z87.01 Personal history of pneumonia (recurrent); Z88.5 Allergy status to narcotic agent; Z91.048 Other nonmedicinal substance allergy status; Z87.440 Personal history of urinary (tract) infections
CPT/HCPCS: 36415; 70450; 70553; 71045; 71046; 80053; 80061; 81001; 82550; 82553; 83605; 83735; 83880; 84100; 84132; 84443; 84484; 85025; 85610; 85730; 87040; 87077; 87086; 87186; 93005; 93306; 94640; 95816; 96361; 96365; 96366; 96375; 99285

== ENCOUNTER 2018-08-21 18:50 | Emergency (ER) | payer MEDICARE ==
--- NOTE | 2018-08-21 19:20 | ED ---
Recheck HPI - General Chief Complaint: Recheck/Abnormal Lab/Rx Stated Complaint: Blocked PEG tube Time Seen by Provider: 08/21/18 19:12 Source: family, EMS, RN notes reviewed Mode of arrival: EMS Limitations: language barrier - History of Present Illness Initial Comments: 72-year-old male presents emergency department via EMS for complaints of clogged PEG tube in the room states that she try to put some medication to through she states that she may have not used enough liquid and states that she cannot flush at this time. She did try multiple things at home with no relief. There is no other complaints. - Related Data Home Medications Medication Instructions Recorded Confirmed Amantadine HCl [Symmetrel] 100 mg PEG/G-TUBE BID 06/29/18 08/21/18 Ascorbic Acid [Vitamin C] 1,000 mg PEG/G-TUBE DAILY 06/29/18 08/21/18 Aspirin 81 mg PEG/G-TUBE DAILY 06/29/18 08/21/18 Baclofen [Lioresal] 20 mg PEG/G-TUBE TID 06/29/18 08/21/18 Citalopram Hydrobromide [CeleXA] 20 mg PEG/G-TUBE DAILY 06/29/18 08/21/18 Montelukast [Singulair] 10 mg PEG/G-TUBE HS 06/29/18 08/21/18 Multivitamins, Thera [Multivitamin 1 tab PEG/G-TUBE DAILY 06/29/18 08/21/18 (formulary)] Simvastatin [Zocor] 20 mg PEG/G-TUBE HS 06/29/18 08/21/18 glyBURIDE 1.25 mg PEG/G-TUBE DAILY 06/29/18 08/21/18 Folic Acid 1 mg PEG/G-TUBE HS 08/21/18 08/21/18 Metoprolol Tartrate [Lopressor] 25 mg PEG/G-TUBE BID 08/21/18 08/21/18 Sennosides [Senna] 17.2 mg PEG/G-TUBE BID PRN 08/21/18 08/21/18 Thiamine [Vitamin B-1] 100 mg PEG/G-TUBE DAILY 08/21/18 08/21/18 Allergies Allergy/AdvReac Type Severity Reaction Status Date / Time adhesive tape Allergy Rash/Hives Verified 08/21/18 19:03 codeine Allergy Rash/Hives Verified 08/21/18 19:03 Review of Systems ROS Statement: Those systems with pertinent positive or pertinent negative responses have been documented in the HPI. ROS Other: All systems not noted in ROS Statement are negative. Past Medical History Past Medical History: Atrial Fibrillation, Diabetes Mellitus, Hyperlipidemia, Musculoskeletal Disorder Additional Past Medical History / Comment(s): anemia History of Any Multi-Drug Resistant Organisms: None Reported Additional Past Surgical History / Comment(s): right shoulder reverse repair, lithotrispy, PEG tube 07/07/18@[facility] Past Psychological History: Depression Smoking Status: Former smoker Past Alcohol Use History: None Reported Past Drug Use History: None Reported General Exam Limitations: language barrier General appearance: alert, in no apparent distress Respiratory exam: Present: normal lung sounds bilaterally. Absent: respiratory distress, wheezes, rales, rhonchi, stridor Cardiovascular Exam: Present: regular rate, normal rhythm, normal heart sounds. Absent: systolic murmur, diastolic murmur, rubs, gallop, clicks GI/Abdominal exam: Present: soft, normal bowel sounds, other (PEG tube noted with semisolid contents). Absent: distended, tenderness, guarding, rebound, rigid Skin exam: Present: warm, dry, intact, normal color. Absent: rash Course Vital Signs 08/21/18 08/21/18 19:00 22:17 Temperature 97.6 F 98.0 F Pulse Rate 62 80 Respiratory 14 19 Rate Blood Pressure 120/57 162/76 O2 Sat by Pulse 93 L 98 Oximetry Procedures - Procedures Initial comment: Unsuccessful to a blocked PEG tube, platelet tube was removed, new PEG tube was placed 18-Qatari with no complications balloon inflated with 7 mL of saline, PEG tube placement noted with x-ray Medical Decision Making - Medical Decision Making 72-year-old male presented for PEG tube from. Unable to dislodge block 2, PEG tube was removed, 18-Qatari was placed no complications. Disposition Clinical Impression: PEG tube malfunction Disposition: HOME SELF-CARE Condition: Stable Instructions: Percutaneous Endoscopic Gastrostomy (ED) Additional Instructions: Please return to the Emergency Department if symptoms worsen or any other concerns. Is patient prescribed a controlled substance at d/c from ED?: No Referrals: Ramon Suero DO [Primary Care Provider] - 1-2 days Time of Disposition: 20:51
--- NOTE | 2018-08-21 22:00 | XR ---
EXAMINATION TYPE: XR KUB DATE OF EXAM: 08/21/2018 COMPARISON: NONE HISTORY: Clogged PEG tube TECHNIQUE: Single view FINDINGS: Contrast was injected into the gastrostomy tube. Contrast is seen in the stomach. I do not see definite extravasation. IMPRESSION: Gastrostomy tube appears to be in good position. Limited exam. PEG tube is not clogged.
[2018-08-21 22:19] VITALS: BP 162/76; PULSE 80; RESP 19; TEMP 98
== END 2018-08-21 22:17 | disposition home or self-care (01) ==
LOC: EC 18:50
DX: K94.23 Gastrostomy malfunction (principal); I48.91 Unspecified atrial fibrillation; E11.9 Type 2 diabetes mellitus without complications; E78.5 Hyperlipidemia, unspecified; D64.9 Anemia, unspecified; F32.9 Major depressive disorder, single episode, unspecified; Z87.891 Personal history of nicotine dependence; Z79.84 Long term (current) use of oral hypoglycemic drugs; Z79.82 Long term (current) use of aspirin; Z79.899 Other long term (current) drug therapy; Z88.5 Allergy status to narcotic agent; Z91.048 Other nonmedicinal substance allergy status
CPT/HCPCS: 99283; 43762; 74018; Q9967